=== PATIENT | male | born 1990 | race Caucasian/White ===

== ENCOUNTER 2023-03-24 09:29 | Emergency (ER) | payer OTHER ==
[~2023-03-24] VITALS: Ht 170.2 cm; Wt 63.6 kg
[2023-03-24 10:00] VITALS: BP 120/78; PULSE 118; RESP 16; O2SAT 97
[2023-03-24] MEDS ORDERED: CLIN300C70 PO (10:04)
[2023-03-24] MEDS ORDERED: IBUP-1456 PO (10:04)
[2023-03-24 10:15] VITALS: TEMP 99.7
[2023-03-24] MEDS ORDERED: IBUPROFEN 800 MG TAB PO ONE (10:15)
== END 2023-03-24 10:19 | disposition home or self-care (01) ==
LOC: ER 09:29
DX: K04.7 Periapical abscess without sinus (principal)